=== PATIENT | male | born 1990 | race Two or more races ===

== ENCOUNTER 2018-04-29 06:38 | Day surgery (SDC) | payer MEDICAID ==
[~2018-04-29] VITALS: Ht 170.2 cm; Wt 74.9 kg
[2018-04-29] VITALS (21 sets, daily range): BP systolic 93–129; BP diastolic 53–83
[2018-04-29] MEDS ORDERED: MIDAZolam 5mg/5ml vial IV ONE (07:10)
[2018-04-29] MEDS ORDERED: LIDOcaine 1%/PF 5ML 10 MG/ML VIAL IJ ONE (07:15)
[2018-04-29] MEDS ORDERED: AMLO2.5T2 PO (07:28)
[2018-04-29] MEDS ORDERED: PHO667C PO (07:28)
[2018-04-29] MEDS ORDERED: VIT-6 PO (07:28)
[2018-04-29 07:34] LABS: BASOPHILS % (AUTO) 0.4 % (0-1); EOSINOPHILS # (AUTO) 0.2 X10'3 (0-0.9); EOSINOPHILS % (AUTO) 3.2 % (0-6); HEMATOCRIT 32.5 % (42.0-52.0); HEMOGLOBIN 11.5 g/dl (14.0-17.9); LYMPHOCYTES # (AUTO) 1.7 X10'3 (1.1-4.8); LYMPHOCYTES % (AUTO) 30.3 % (21-51); MEAN CORPUSCULAR HEMOGLOBIN 32.2 PG (27.0-31.0); MEAN CORPUSCULAR HGB CONC 35.5 % (33.0-36.5); MEAN CORPUSCULAR VOLUME 90.9 FL (78-98); MONOCYTES # (AUTO) 0.5 X10'3 (0-0.9); MONOCYTES % (AUTO) 8.9 % (2-12); NEUTROPHILS # (AUTO) 3.3 X10'3 (1.8-7.7); NEUTROPHILS % (AUTO) 57.2 % (42-75); PLATELET COUNT 208 X10'3 (140-440); RED BLOOD COUNT 3.57 X10'6 (4.70-6.10); RED CELL DISTRIBUTION WIDTH 13.4 % (11.5-14.5); WHITE BLOOD COUNT 5.8 X10'3 (4.5-11.0)
[2018-04-29] MEDS ORDERED: normal saline 1000ml 1,000 ML IV SCH (07:50)
[2018-04-29] MEDS ORDERED: LIDOcaine 1%/PF 5ML 10 MG/ML VIAL ONE (09:34)
[2018-04-29] MEDS ORDERED: acetaminophen w/codeine (30MG) #3 tablet PO PRN (10:05)
[2018-04-29 12:16] LABS: HEMATOCRIT 29.9 % (42.0-52.0); HEMOGLOBIN 10.5 g/dl (14.0-17.9); MEAN CORPUSCULAR HGB CONC 35.1 % (33.0-36.5); MEAN CORPUSCULAR VOLUME 91.1 FL (78-98); MEAN PLATELET VOLUME 7.8 FL (7.4-10.4); PLATELET COUNT 204 X10'3 (140-440); RED BLOOD COUNT 3.28 X10'6 (4.70-6.10); RED CELL DISTRIBUTION WIDTH 13.4 % (11.5-14.5); WHITE BLOOD COUNT 5.2 X10'3 (4.5-11.0)
[2018-04-29 14:26] LABS: HEMATOCRIT 29.4 % (42.0-52.0); HEMOGLOBIN 10.6 g/dl (14.0-17.9); MEAN CORPUSCULAR HEMOGLOBIN 32.5 PG (27.0-31.0); MEAN CORPUSCULAR HGB CONC 35.8 % (33.0-36.5); MEAN CORPUSCULAR VOLUME 90.7 FL (78-98); MEAN PLATELET VOLUME 7.8 FL (7.4-10.4); PLATELET COUNT 188 X10'3 (140-440); RED BLOOD COUNT 3.25 X10'6 (4.70-6.10); RED CELL DISTRIBUTION WIDTH 14.1 % (11.5-14.5); WHITE BLOOD COUNT 6.9 X10'3 (4.5-11.0)
== END 2018-04-29 14:53 | disposition home or self-care (01) ==
LOC: SSTAY O 06:38
PROVIDERS: ATTEND Internal Medicine Critical Care Medicine
DX: I12.0 Hypertensive chronic kidney disease with stage 5 chronic kidney disease or end stage renal disease (principal); N18.6 End stage renal disease; N26.9 Renal sclerosis, unspecified; N04.8 Nephrotic syndrome with other morphologic changes; F32.9 Major depressive disorder, single episode, unspecified; F41.8 Other specified anxiety disorders; Z99.2 Dependence on renal dialysis; Z79.899 Other long term (current) drug therapy
CPT/HCPCS: 36415; 50200; 76942; 85025; 85027; 85576; 86885; 86900; 86901; 86920; A6449; J2001; J2250; J7030; A4620